=== PATIENT | male | born 1980 | race Caucasian/White ===

== ENCOUNTER 2018-01-24 18:55 | Emergency (ER) | payer OTHER ==
[2018-01-24 19:01] VITALS: BP 135/91; PULSE 74; TEMP 98.5; BMI 28.0
--- NOTE | 2018-01-24 19:28 | PDOC ---
History of Present Illness - General Chief Complaint: Injury Stated Complaint: PAIN - History of Present Illness Initial Comments: 2-year-old male with a past medical history of hypertension which he takes a medication he cannot remember presents for evaluation of left fourth finger pain and right wrist pain 2 weeks. He first noticed pain after playing basketball he states he got jam with a basketball and hand and wrist and has been 01/24/18 19:26 Past History - Past Medical History Allergies/Adverse Reactions: Allergies Allergy/AdvReac Type Severity Reaction Status Date / Time No Known Allergies Allergy Verified 01/24/18 19:01 COPD: No HTN: Yes - Suicide/Smoking/Psychosocial Hx Smoking History: Never smoked Review of Systems - Review of Systems Musculoskeletal: Yes: See HPI, Joint Pain All Other Systems: Reviewed and Negative *Physical Exam - Vital Signs Last Vital Signs Temp Pulse Resp BP Pulse Ox 98.5 F 74 18 135/91 99 01/24/18 18:58 01/24/18 18:58 01/24/18 18:58 01/24/18 18:58 01/24/18 18:58 - Physical Exam Comments: Right wrist skin color and temperature are normal there is tenderness about the ulnar aspect of the wrist. He has pain at terminal supination. 5 out of 5 honey extractor strength. No evidence of instability no tenderness about the scaphoid no tenderness of the distal radius or radial styloid he has no gross sensorimotor deficits she's neurovascular intact. Left fifth finger is swollen at the PIPJ. He has tenderness about the PIPJ with mild swelling. He is unable to flex his DIPJ independently. He flexes his PIPJ. Unable to determine if FDP is intact. The remainder of the hand is normal he has no gross sensorimotor deficits in the remainder of the fingers. He has full sensation the fourth finger 01/24/18 19:27 ED Treatment Course - RADIOLOGY Radiology Studies Ordered: Category Date Time Status HAND- LEFT [RAD] Stat Radiology 01/24/18 19:25 Ordered WRIST W/HAND-RIGHT* [RAD] Stat Radiology 01/24/18 19:24 Ordered Medical Decision Making - Medical Decision Making Right wrist x-ray is negative TFCC tear is likely I'll have him follow-up with hand and wrist surgery there is a small fracture only seen on lateral at the base of the middle phalanx of the left fourth finger for this he can use minna tape. Fractures now 2 weeks old at this point.Am unable to determine if his FDP is intact I will have her follow-up for hand surgery 01/24/18 19:55 *DC/Admit/Observation/Transfer Diagnosis at time of Disposition: Fracture of finger of left hand, Right wrist sprain - Discharge Dispostion Disposition: HOME Condition at time of disposition: Stable Decision to Admit order: No - Referrals Referrals: Vero Boudreaux [Primary Care Provider] - Jefe Carvajal MD [Staff Physician] - - Patient Instructions Printed Discharge Instructions: Finger Fracture, DI for Finger Fracture, Wrist Sprain, DI for Wrist Sprain Additional Instructions: Return to the emergency room should her symptoms worsen or go unresolved. Take Tylenol for pain. Follow-up with hand surgery in 1-2 days for further evaluation and treatment options. Keep your fingers minna taped and wear the wrist splint for comfort. Do not neglect following up with hand surgery I feel he may have torn attended and your fourth finger of your left hand. This may require operative repair. - Post Discharge Activity
== END 2018-01-24 20:10 | disposition home or self-care (01) ==
LOC: JERFT 18:55
DX: S62.655A Nondisplaced fracture of middle phalanx of left ring finger, initial encounter for closed fracture (principal); S63.591A Other specified sprain of right wrist, initial encounter; W21.05XA Struck by basketball, initial encounter; Y93.67 Activity, basketball; Y92.310 Basketball court as the place of occurrence of the external cause; Y99.8 Other external cause status
CPT/HCPCS: 73110-TC-RT-FY; 73130-TC-LR-FY; 73130-TC-RT-FY; 99281-25